=== PATIENT | female | born 1985 | race Two or more races ===

== ENCOUNTER 2021-06-10 19:32 | Emergency (ER) | payer OTHER ==
[~2021-06-10] VITALS: Ht 170.2 cm; Wt 72.1 kg
--- NOTE | 2021-06-10 20:10 | NUR ---
TO ER BED 2. BIBS C/O CHEST PAIN RADIATING TO L ARM AND BACK X 3 DAYS PAIN IS 7/10 ON P/S. ACCOMPANIED BY N/V AND WEAKNESS. PT STATES "GOING THROUGH A TOUGH BREAK UP" V/S STABLE CONNECTED TO MONITOR. WILL CONTINUE TO MONITOR
--- NOTE | 2021-06-10 20:21 | NUR ---
LAB AT BEDSIDE
--- NOTE | 2021-06-10 20:24 | NUR ---
XRAY AT BEDSIDE
[2021-06-10] MEDS ORDERED: LORAZEPAM 0.5 MG TABLET ONE (20:40)
[2021-06-10] MEDS ORDERED: LORAZEPAM 1 MG TABLET PO ONE (21:00)
[2021-06-10 21:01] LABS: BASOPHILS % (AUTO) 0.2 % (0.0-2.0); EOSINOPHILS % (AUTO) 0.8 % (0.0-6.0); HEMATOCRIT 39 % (33-45); HEMOGLOBIN 12.5 g/dL (11.5-14.8); LYMPHOCYTES % (AUTO) 27.3 % (20.0-44.0); MEAN CORPUSCULAR HGB CONC 32 g/dl (31.0-36.0); MEAN CORPUSCULAR VOLUME 77 fL (82-100); MONOCYTES # (AUTO) 0.3 K/uL (0.1-1.30); MONOCYTES % (AUTO) 4.7 % (2.0-12.0); PLATELET COUNT (AUTO) 293 K/uL (150-450); WHITE BLOOD COUNT (AUTO) 7.5 K/uL (4.3-11.0)
[2021-06-10 21:09] LABS: CALCIUM, SERUM 9.3 mg/dL (8.5-10.1); CARBON DIOXIDE 30 mmol/L (21-32); CHLORIDE 102 mmol/L (98-107); CREATININE 0.7 mg/dL (0.6-1.3); GLUCOSE 101 mg/dL (74-106); POTASSIUM 3.8 mmol/L (3.5-5.1); SODIUM SERUM 137 mmol/L (136-145); UREA NITROGEN, BLOOD 10 mg/dL (7-18)
[2021-06-10] MEDS ORDERED: LORA-258 PO (21:27)
[2021-06-10 22:15] VITALS: BP 136/70
--- NOTE | 2021-06-10 22:15 | NUR ---
Patient discharged to home in stable condition. Written and verbal after care instructions given. Patient verbalizes understanding of instruction.
== END 2021-06-10 22:15 | disposition home or self-care (01) ==
LOC: ER 19:40
DX: R07.89 Other chest pain (principal); F43.0 Acute stress reaction; Z88.0 Allergy status to penicillin; Z79.52 Long term (current) use of systemic steroids
CPT/HCPCS: 36415; 71045-TC; 80048-TC; 84484-TC; 85025-TC